=== PATIENT | female | born 1995 | race Caucasian/White ===

== ENCOUNTER 2016-12-06 01:49 | Emergency (ER) | payer OTHER ==
[2016-12-06 02:08] VITALS: TEMP 36.7; O2SAT 99
[2016-12-06 02:38] LABS: BLOOD UREA NITROGEN 7 mg/dl (7-18); BUN/CREATININE RATIO 11.6 (10-20); CALCIUM 8.8 mg/dl (8.5-10.1); CARBON DIOXIDE 21 mmol/L (21-32); CHLORIDE 109 mmol/L (98-107); CREATININE 0.61 mg/dl (0.60-1.20); GLUCOSE 133 mg/dl (70-99); POTASSIUM 3.1 mmol/L (3.5-5.1); SODIUM 143 mmol/L (136-145)
[2016-12-06 05:18] VITALS: BP 96/57; PULSE 74; O2SAT 97
[2016-12-06] MEDS ORDERED: BCPILLS PO (05:44)
--- NOTE | 2016-12-06 06:48 | EMERGENCY ROOM VISIT NOTE ---
History Report prepared by Garrett: Jeremy Ames Under the Supervision of: Dr. Melissa Alvarez D.O. First contact with patient: 01:51 Chief Complaint: ALCOHOL OVERDOSE Stated Complaint: ALCOHOL OVERDOSE Nursing Triage Summary: pt was drinking at the [facility] and was unable to ambulate and someone called for ems. pt unresponsive to questions History of Present Illness The patient is a 21 year old female who presents to the Emergency Room via EMS for an alcohol overdose occurring prior to arrival. The patient was at the [facility] , and she had 6-7 shots. She was found unable to ambulate, and she vomited 2-3 times. The patient did not have any trauma. History is limited secondary to intoxication. Source of History: EMS History Limited By: intoxication Onset: prior to arrival Position: other (global) Quality: other (alcohol overdose) Associated Symptoms: + vomiting Review of Systems History is limited secondary to intoxication. Past Medical & Surgical History is limited secondary to intoxication. Family History History is limited secondary to intoxication. Social History Smoking Status: Unknown if Ever Smoked Marital Status: in relationship Occupation Status: [employer] student Current/Historical Medications Scheduled Control Pills ( Control Pills), 1 TAB PO DAILY Allergies Coded Allergies: No Known Allergies (Unverified , 12/06/16) Physical Exam Vital Signs Date Time Temp Pulse Resp B/P (MAP) Pulse Ox O2 Delivery O2 Flow Rate FiO2 12/06/16 05:18 74 20 96/57 97 Room Air 12/06/16 03:52 79 18 104/52 99 12/06/16 02:08 99 Room Air 12/06/16 02:08 36.7 114 16 122/76 99 Room Air 12/06/16 02:07 82 Pain Rating (0-10): 0 Physical Exam HEENT: Vomit all over her mouth, and coming out of her nose. Head - normocephalic and atraumatic Pupils are 2mm and unreactive. Extraocular eye muscles are intact, and sclera are anicteric. Nose - moist nasal mucosa without discharge. Mouth - moist buccal mucosa. Oropharynx is nonerythematous and there is no tonsillar exudate or edema noted. Neck: Supple; no cervical lymphadenopathy or nuchal rigidity. Heart: Regular rate and rhythm. There is a normal S1 and S2 with no murmurs, clicks, or gallops appreciated. Lungs: Clear to auscultation bilaterally with no wheezes, rales, or rhonchi. Abdomen: Soft, completely nontender, nondistended, with good bowel sounds. There are no palpable pulsatile masses or hepatosplenomegaly. There is no guarding, rigidity, or rebound noted. Extremities: No evidence of cyanosis, clubbing, or edema. There are easily palpable peripheral pulses. Skin: warm and dry with good turgor and no rashes. Medical Decision & Procedures Laboratory Results 12/06/16 02:00 Test 12/06/16 02:00 Anion Gap 13.0 mmol/L (3-11) Estimated GFR () 149.1 Estimated GFR (Non- 128.7 BUN/Creatinine Ratio 11.6 (10-20) Calcium Level 8.8 mg/dl (8.5-10.1) Ethyl Alcohol mg/dL 208.0 mg/dl (0-3) Laboratory results per my review. ED Course 0151: Past medical records reviewed. The patient was evaluated in room A11. A complete history and physical exam was performed. Labs are drones above. The patient was placed in the prone position to avoid aspiration. She was observed on the linux devops engineer and pulse oximeter. 0303: I reevaluated the patient, and she was sleeping and hemodynamically stable 0532: Upon reevaluation, the patient is feeling well. I discussed findings and results with her. She verbalized agreement of the treatment plan. She was discharged home. Medical Decision The patient is a 21 year old female who presents to the ED for an alcohol overdose. Differential diagnosis includes alcohol overdose, drug intoxication, hypoglycemia, head injury Lab results show: low potassium at 3.1, glucose of 133, alcohol of 208. The patient was brought to the emergency department tonight after consuming too much alcohol. She was monitored here while she sobered up. She was cooperative throughout her stay. Her potassium was slightly low. She was instructed to take foods high in potassium and avoid such excessive alcohol use in the future. Medication Reconcilliation Current Medication List: was personally reviewed by me Blood Pressure Screening Patient's blood pressure: Normal blood pressure Impression Primary Impression: Alcohol overdose Additional Impression: Hypokalemia Scribe Attestation The scribe's documentation has been prepared under my direction and personally reviewed by me in its entirety. I confirm that the note above accurately reflects all work, treatment, procedures, and medical decision making performed by me. Departure Information Dispostion Home / Self-Care Forms HOME CARE DOCUMENTATION FORM, IMPORTANT VISIT INFORMATION Patient Instructions My [facility]: [employer] Students and Alcohol Related Visits, ED Overdose Alcohol Additional Instructions Rest. Take plenty of clear liquids Avoid such excessive alcohol use in the future Take tylenol for headaches Take foods high in potassium Problem Qualifiers Primary Impression: Alcohol overdose Encounter type: initial encounter Injury intent: accidental or unintentional Qualified Codes: T51.91XA - Toxic effect of unspecified alcohol , accidental (unintentional), initial encounter
== END 2016-12-06 05:40 | disposition home or self-care (01) ==
LOC: C.EDA 01:53
DX: T51.91XA Toxic effect of unspecified alcohol, accidental (unintentional), initial encounter (principal); E87.6 Hypokalemia; Y90.7 Blood alcohol level of 200-239 mg/100 ml